=== PATIENT | male | born 1960 | race Two or more races ===

== ENCOUNTER 2020-02-11 11:44 | Outpatient (CLI) | payer OTHER | END 2020-02-11 23:59 | disposition home or self-care (01) | LOC: CARD 11:44 | PROVIDERS: ATTEND Psychiatry & Neurology Neurology | DX: R51.9 Headache, unspecified (principal); E78.1 Pure hyperglyceridemia; Z91.14 Patient's other noncompliance with medication regimen | CPT/HCPCS: 95819 ==